=== PATIENT | female | born 1990 | race Caucasian/White ===

== ENCOUNTER 2016-10-06 22:04 | Emergency (ER) | payer OTHER ==
[~2016-10-06] VITALS: Ht 165.1 cm; Wt 83.5 kg
[2016-10-06 23:40] LABS: PATH.CAST-FLAG NOT PRESENT; SPERM-FLAG NOT PRESENT; SRC-FLAG NOT PRESENT; XTAL-FLAG NOT PRESENT; YLC-FLAG NOT PRESENT
[2016-10-06] MEDS ORDERED: FAMOTIDINE 20 MG TABLET ONE (23:42)
[2016-10-06] MEDS ORDERED: MAALOX/HYOSCYAMINE/LIDOCAINE 45 ML BTL ONE (23:43)
[2016-10-07] MEDS ORDERED: MAALOX/HYOSCYAMINE/LIDOCAINE 45 ML BTL PO ONE
[2016-10-07] MEDS ORDERED: FAMOTIDINE 20 MG TABLET PO ONE
[2016-10-07 00:26] LABS: HEMATOCRIT 38.9 % (34.6-47.8); HEMOGLOBIN 12.8 g/dL (11.7-16.4); WHITE BLOOD COUNT 6.3 x10^3/uL (3.4-10)
[2016-10-07 00:51] LABS: ASPARTATE AMINO TRANSFERASE 14 U/L (15-37); BLOOD UREA NITROGEN 11 mg/dL (7-18)
[2016-10-07 01:03] LABS: HCG UR OBC PASS
[2016-10-07 01:42] VITALS: BP 98/59
== END 2016-10-07 01:44 | disposition home or self-care (01) ==
LOC: ED 23:59
DX: K29.00 Acute gastritis without bleeding (principal)
CPT/HCPCS: 36415; 80053; 81001; 81025; 83690; 85025; 87086; 99284